=== PATIENT | female | born 1975 | race Asian ===

== ENCOUNTER 2020-07-21 11:22 | Emergency (ER) | payer OTHER, SELFPAY ==
[2020-07-21 11:30] VITALS: BP 153/113; PULSE 99; RESP 20; TEMP 36.2; O2SAT 100
--- NOTE | 2020-07-21 11:32 | ED.FEMALEGU ---
HPI - Female Genitourinary General Chief complaint: Urogenital-Female Stated complaint: POS UTI Time Seen by Provider: 07/21/20 11:32 Source: patient and RN notes reviewed History of Present Illness HPI Narrative: Patient is a 45-year-old female who presents the urgent care with complaints of a possible UTI. Patient states that last night she started having urinary frequency, urgency, blood-tinged urine, burning with urination and slight pelvic pressure. Denies of any known fever, nausea, vomiting, abdominal pain. Patient denies of any use of [id number] medication for symptoms. No other acute complaints. No acute distress noted. Patient aware of the plan of care. Some parts of this dictation were generated by voice recognition software and may contain typographical and/or grammatical inaccuracies. Related Data Allergies Allergy/AdvReac Type Severity Reaction Status Date / Time No Known Allergies Allergy Verified 01/01/15 19:45 Review of Systems Review of Systems: Narrative: CONSTITUTIONAL: Denies fever, chills, or sweats. EYES: Denies visual changes, redness, or discharge. ENT: Denies rhinorrhea, congestion, sore throat, or otalgia. CARDIOVASCULAR: Denies chest pain, palpitations, or edema. RESPIRATORY: Denies cough or dyspnea. GASTROINTESTINAL: Denies abdominal pain, nausea, vomiting, or diarrhea. GENITOURINARY: Reports of urinary frequency, urgency, dysuria, hematuria, pelvic pressure SKIN: Denies rash or itching. MUSCULOSKELETAL: Denies back pain, joint pain, or myalgia. NEUROLOGIC: Denies headache, numbness, or weakness. All other systems reviewed are negative, except as documented in HPI. PMFSH Comments At the time of my signature, I reviewed and agree with the nursing past medical, surgical, social, and family history. There is no relevant family history pertinent to the patient complaint. Exam Narrative: Exam Narrative: GENERAL: This is a well-nourished, well-developed patient, in no apparent distress. HEAD: normocephalic, atraumatic. EYES: PERRL. Sclera clear/white. Vision is grossly intact. EARS: External ears normal NOSE: External nose normal with no obvious nasal discharge, nares without redness, no rhinorrhea. THROAT: Mucous membranes moist NECK: Neck supple GASTROINTESTINAL: Abdomen soft, non-tender, nondistended. Bowel sounds are active. SKIN: warm, intact with no suspicious lesions or rash, good texture and turgor. NEURO: awake, alert, and oriented to person, place and time. There were no obvious focal neurologic abnormalities. EXTREMITIES: No clubbing, cyanosis, or edema. BACK: Mild bilateral CVA tenderness Course Vital Signs Vital signs: Vital Signs Temperature 97.1 F L 07/21/20 11:30 Pulse Rate 99 07/21/20 11:30 Respiratory Rate 20 07/21/20 11:30 Blood Pressure 153/113 H 07/21/20 11:30 Pulse Oximetry 100 07/21/20 11:30 Temperature 97.1 F L 07/21/20 11:34 Pulse Rate 99 07/21/20 11:34 Respiratory Rate 20 07/21/20 11:34 Blood Pressure 153/113 H 07/21/20 11:34 Pulse Oximetry 100 07/21/20 11:34 Reviewed-patient is informed that they may have pre-hypertension or hypertension based on a blood pressure reading in the department. I recommend the patient call the primary care provider listed on their discharge instructions or a physician of their choice this week to arrange follow-up for further evaluation of possible pre-hypertension or hypertension. MDM - Female Genitourinary MDM Narrative Medical decision making narrative: Reviewed lab results with the patient. She is aware that urine analysis is indicative of a urinary tract infection. Advised the patient to complete oral antibiotic regimen as prescribed. Make sure to eat and drink with the medication. Increase water intake and avoid sugary and caffeinated drinks. We will culture the urine and call if medication needs to be changed, based on culture results. Use Pyridium as needed for bladder spasms. If you deve
[2020-07-21 11:34] VITALS: BP 153/113; PULSE 99; RESP 20; TEMP 36.2; O2SAT 100
[2020-07-21 11:57] VITALS: BP 159/91
== END 2020-07-21 11:57 | disposition home or self-care (01) ==
PROVIDERS: Emergency Provider Nurse Practitioner Family
DX: N39.0 Urinary tract infection, site not specified (principal)
CPT/HCPCS: 81003; 87077; 87086; 87088; 99203; G0463

== ENCOUNTER 2021-02-26 14:52 | Outpatient (CLI) | payer BC, SELFPAY ==
--- NOTE | ~2021-02-26 | MM_ITS ---
EXAMINATION: MM screening calvin BI w ricardo HISTORY: Screening TECHNIQUE: Craniocaudal and mediolateral oblique 3-D tomosynthesis images were obtained and synthetic 2-D images were generated. CAD analysis was submitted and interpreted. COMPARISON: No prior mammogram is available for comparison at this institution. BREAST PARENCHYMAL COMPOSITION: The breasts are heterogenously dense, which may obscure small masses. FINDINGS: There are asymmetries centered in the upper central left breast posteriorly. There are no s uspicious masses, calcifications or architectural distortion in the right breast to suggest malignanc y. IMPRESSION: 1. Left breast asymmetries. 2. Additional mammographic views and possible breast ultrasound are recommended. BI-RADS Category 0: Incomplete: Needs additional imaging evaluation. Reviewed, dictated and finalized at location A. IMPRESSION: 1. Left breast asymmetries. 2. Additional mammographic views and possible breast ultrasound are recommended . BI-RADS Category 0: Incomplete: Needs additional imaging evaluation.
== END 2021-02-26 14:53 | disposition home or self-care (01) ==
PROVIDERS: PCP Family Medicine; Visit Provider Obstetrics & Gynecology
DX: Z12.31 Encounter for screening mammogram for malignant neoplasm of breast (principal); R92.8 Other abnormal and inconclusive findings on diagnostic imaging of breast
CPT/HCPCS: 77063; 77067

== ENCOUNTER 2021-04-09 13:29 | Outpatient (CLI) | payer BC, SELFPAY ==
--- NOTE | ~2021-04-09 | MMUS_ITS ---
EXAMINATION: MM diagnostic mammo unilat LT, US breast LT limited HISTORY: Left breast asymmetries on screening mammogram TECHNIQUE: Additional 3-D tomosynthesis images of the left breast were performed and synthetic 2-D im ages were generated. CAD analysis was submitted and interpreted. High resolution limited left breast ultrasound was performed. COMPARISON: 02/26/2021 BREAST PARENCHYMAL COMPOSITION: The breasts are heterogeneously dense, which may obscure small masses . FINDINGS: MAMMOGRAPHIC FINDINGS: There is a 10 mm, obscured, low density mass in the posterior third central, slightly inner breast 8 cm from the nipple. ULTRASOUND: There is a 5 mm oval, circumscribed, parallel, hypoechoic mass with no posterior features or internal vascularity at the 11:00 location 4 cm from the nipple. No definite sonographic correlate is identif ied for the mammographic finding in question. IMPRESSION: 1. Probably benign left breast masses. 2. Recommend 6 month follow-up left diagnostic mammogram and ultrasound. BI-RADS category 3, probably benign findings. Reviewed, dictated and finalized at location A. IMPRESSION: 1. Probably benign left breast masses. 2. Recommend 6 month follow-up left diagnostic mammogram and ultrasound. BI-RADS category 3, probably benign findings.
== END 2021-04-09 13:30 | disposition home or self-care (01) ==
LOC: ANHIMG 13:30
PROVIDERS: Visit Provider Obstetrics & Gynecology
DX: R92.8 Other abnormal and inconclusive findings on diagnostic imaging of breast (principal)
CPT/HCPCS: 76642; 77065

== ENCOUNTER 2022-02-25 10:16 | Emergency (ER) | payer BC, SELFPAY ==
--- NOTE | 2022-02-25 10:45 | ED.WOUNDLAC ---
HPI - Wound/Laceration General Chief Complaint: Wound/Laceration Stated Complaint: cut on right hand Time Seen by Provider: 02/25/22 10:48 Source: patient Mode of arrival: ambulatory Limitations: no limitations History of Present Illness HPI narrative: 47 y/o female presented for c/o right hand laceration between 4th and 5th fingers, cut it on a glass while doing the dishes at 0900. She immediately applied pressure. It continues to bleed. Denies numbness, tingling or decreased ROM to hand/fingers. Related Data Home Medications Medication Instructions Recorded Confirmed loratadine 10 mg tablet (Claritin) 10 mg PO DAILY 02/16/21 02/25/22 Allergies Allergy/AdvReac Type Severity Reaction Status Date / Time No Known Allergies Allergy Verified 02/25/22 10:50 Review of Systems Review of Systems: CONSTITUTIONAL: Denies body aches, fever, chills, or sweats. CARDIOVASCULAR: Denies chest pain, palpitations, or edema. RESPIRATORY: Denies cough or dyspnea. SKIN: right hand laceration MUSCULOSKELETAL: Denies back pain, joint pain, or myalgia. NEUROLOGIC: Denies headache PMF Past Medical History Medical History (Updated 02/25/22 @ 10:48 by Tabatha Preston, MILAGROS) Multiple food allergies Vegetables and fruit Surgical History Surgical History (Updated 02/16/21 @ 09:39 by Gregoria Stubbs) [place] teeth removed Social History Social History (Updated 02/16/21 @ 09:39 by Gregoria Stubbs) Smoking status: Never smoker Alcohol intake: never Substance use: never Comments At time of signature, I have reviewed and agree with nursing past medical, surgical, social and family history unless otherwise noted. Please see nursing chart for further information. There is no relevant family history pertinent to the presenting complaint Exam Narrative: GENERAL: Well-appearing ENT: Mucous membranes moist. NECK: Supple. No lymphadenopathy CHEST: Clear to auscultation. No respiratory distress. HEART: Regular rate and rhythm. SKIN: Warm, dry. web space between 4th and 5th digit with approx 0.5cm laceration, small amount active bleeding; wound edges approximate NEURO: Alert and oriented x3. PSYCH: Normal mood and affect Course Course Emergency Course: Patient is aware of diagnosis, understands and agrees to treatment plan. Anticipatory guidance given. Patient agrees to follow-up as directed and is aware of reasons to seek care at the emergency department. Portions of this record may have been created with voice recognition software Level of Care: Express Care Visit Vital Signs Vital signs: Vital Signs Temperature 97.5 F L 02/25/22 10:50 Pulse Rate 100 02/25/22 10:50 Respiratory Rate 16 02/25/22 10:50 Blood Pressure 171/91 H 02/25/22 10:50 Pulse Oximetry 100 02/25/22 10:50 Temperature 97.5 F L 02/25/22 10:50 Pulse Rate 100 02/25/22 10:50 Respiratory Rate 16 02/25/22 10:50 Blood Pressure 171/91 H 02/25/22 10:50 Pulse Oximetry 100 02/25/22 10:50 Reviewed Procedures Laceration Laceration 1: Date: 02/25/22 Site: hand Side (If applicable): right Size (cm): 0.5 Description: irregular and clean Depth: simple, single layer Local Anesthetic: none ====== Skin Level ====== Skin layer closed with: dermabond and steri strips ====== Subcutaneous Layer ====== ====== Muscle Layer ====== ====== Tendon Layer ====== Dressing: Wound cleansed prior to wound closure, pt tolerated well. Tetanus updated. MDM - Wound/Laceration Differential Diagnosis Differential diagnosis: Likely laceration, abrasion and avulsion of skin Discharge Plan Discharge Clinical Impression: Laceration Patient Disposition: Home, Self-Care Condition: Stable Additional Instructions: Keep the area clean and dry - cleanse with warm water and mild soap and allow to fully dry. Steri strips will roll up on thei
[2022-02-25 10:50] VITALS: BP 171/91; PULSE 100; RESP 16; TEMP 36.4; O2SAT 100
[2022-02-25] MEDS: TETANUS,DIPHTHERIA,AC PERTUSSIS ADULT (0.5 ML) BOOSTRIX IM (11:38)
== END 2022-02-25 12:00 | disposition home or self-care (01) ==
PROVIDERS: Emergency Provider Nurse Practitioner Family
DX: S61.411A Laceration without foreign body of right hand, initial encounter (principal); W45.8XXA Other foreign body or object entering through skin, initial encounter; Y93.G1 Activity, food preparation and clean up; Z23 Encounter for immunization
CPT/HCPCS: 12001; 90471; 90715; 99212; G0463

== ENCOUNTER 2022-03-12 13:40 | Outpatient (CLI) | payer BC, SELFPAY ==
--- NOTE | ~2022-03-12 | MMUS_ITS ---
EXAMINATION: MM diagnostic calvin BI w ricardo, US breast LT complete HISTORY: Follow-up left breast mass TECHNIQUE: Additional 3-D tomosynthesis images of the breasts were performed and synthetic 2-D images were generated. CAD analysis was submitted and interpreted. High resolution complete left breast ult rasound was performed. COMPARISON: Comparison to multiple prior studies sequentially, with oldest reviewed study dated 11/2020. BREAST PARENCHYMAL COMPOSITION: The breasts are heterogenously dense, which may obscure small masses. FINDINGS: MAMMOGRAPHIC FINDINGS: The breasts are stable. No new masses, calcifications or architectural distortion in either breast to suggest malignancy. ULTRASOUND: Complete US of all 4 quadrants of the left breast and retroareolar region was reviewed. Normal hetero geneous echotexture without focal mass. IMPRESSION: 1. No evidence for malignancy in either breast. 2. Routine yearly screening mammogram and regular clinical breast examination are recommended. BI-RADS Category 1: Negative Reviewed, dictated and finalized at location A. IMPRESSION: 1. No evidence for malignancy in either breast. 2. Routine yearly screening mammogram and regular clinical breast examination a re recommended. BI-RADS Category 1: Negative
== END 2022-03-12 13:41 | disposition home or self-care (01) ==
LOC: ANHIMG 13:41
PROVIDERS: Visit Provider Obstetrics & Gynecology
DX: R92.8 Other abnormal and inconclusive findings on diagnostic imaging of breast (principal)
CPT/HCPCS: 76641; 77062; 77066; G0279